=== PATIENT | male | born 1975 | race Caucasian/White ===

== ENCOUNTER 2019-04-03 20:21 | Emergency (ER) | payer OTHER, SELFPAY ==
[2019-04-03 20:23] VITALS: BP 146/77; PULSE 76; RESP 16; TEMP 36.7; O2SAT 98; BMI 25.0
--- NOTE | 2019-04-03 20:41 | ED.VIS.GEN ---
History of Present Illness Chief Complaint: Lower Extremity Injury Detail of Chief Complaint: Ankle injury Onset: Today Context: Sudden Onset Timing: Continuous Quality: Pain over lateral malleolus Location: Left Current Severity: Mild Maximum Severity: Moderate Worsened by: Movement and weightbearing Relieved by: Rest Associated Symptoms: None Narrative: Patient is a 43-year-old male whose foot went into a hole had a plantar inversion mechanism injury. He localizes pain to the lateral malleolus. Denies paresthesia, anesthesia motors. He denies any other injury. He reports increased pain with weightbearing. He also reports pain with movement. Prior similar symptoms: No Recent Illness/Hospitalization: No - Past Medical History (1) No significant past medical history Status: Acute Past Medical History - Allergies and Home Meds Allergies/Adverse Reactions: Allergies No Known Allergies Allergy (Verified 04/03/19 20:22) Primary Care Physician: Tamiko Gonzalez,Out of [Primary Care Provider] - Prior records reviewed: No Past Medical History: None Lives: Spouse/ Significant Other Smoking Status: Current every day smoker Alcohol: Occasional Review of Systems Musculoskeletal: Reports: Swelling, Extremity Pain. Denies: Myalgias, Arthralgias, Neck pain, Back pain Skin: Denies: Rash, Abrasions, Wounds Neurological: Denies: Weakness, Parasthesia, Numbness Hematologic: Denies: Easy bruising, Easy bleeding Physical Exam Vital Signs/Narrative: Vital Signs Temp Pulse Resp BP Pulse Ox 04/03/19 20:23 98.0 F 76 16 146/77 H 98 Inital Vital Signs reviewed: Yes General: Well nourished, Well developed, No Acute Distress Head: Normocephalic, Atraumatic Eyes: Perrl, EOMI. Negative for: Pale conjunctiva, Scleral icterus, - ENT: Moist mucous membranes, No rhinorrhea Neck: Supple, Nontender Cardiovascular: Regular rate, Regular rhythm Respiratory: No distress Extremities: No edema, Tenderness - Tenderness to palpation over the distal tip of the lateral malleolus. There is no pain posteriorly. There is no pain ablation of the medial malleolus. Is no laxity with drawer testing. Is no pain to palpation at the base of the fifth metatarsal. DP and PT pulse are palpable. There is tenderness palpation over the anterior talofibular ligament.. Negative for: Nontender Skin: Normal color, No rash Neurological: Alert, Oriented x3, Cranial nerves II-XII grossly intact, Normal Strength, Normal Sensation Psychological: Normal affect, Normal Mood Diagnostic/Tx/Re-eval - Medical Decision Making Per the auto ankle rules imaging is not indicated. Patient was informed he may have a small avulsion fracture versus sprain. The treatment is the same. ED Disposition - Plan for ED Patient: Disposition: Home or Assisted Living Diagnosis: Sprain of anterior talofibular ligament of left ankle Instructions: ED Sprain Ankle No X Ray Referrals: [facility] Doctor,Out of [Primary Care Provider] - 10-14 Days if not better Additional Instructions: Remove Aircast to draw the alphabet with your foot 4-6 times a day for the next 5 days. Tablets or 2 Aleve tablets every 3 to 5 days for pain. Apply ice 20 to 30 minutes a time 6-8 times a day for the next 2 to 3 days. You may remove the splint at bedtime.
--- NOTE | 2019-04-03 20:52 | ED.VISSUMM ---
- ER Visit Summary Date of Service: 04/03/19 Chief Complaint: [] History of Present Illness: The patient is a 43 M [] Physical Examination: [] Test Results: [] Emergency Department Course and Treatment: [] Treatment Plan: [] Disposition: [] Impression: [] This note was generated with [employer] dictation software. It may contain incorrect words, spelling, and punctuation that were not noted in review of the chart prior to signing ED Disposition - Plan for ED Patient: Disposition: Home or Assisted Living Diagnosis: Sprain of anterior talofibular ligament of left ankle Instructions: ED Sprain Ankle No X Ray Referrals: [facility] Doctor,Out of [NON-STAFF] - 10-14 Days if not better Additional Instructions: Remove Aircast to draw the alphabet with your foot 4-6 times a day for the next 5 days. Tablets or 2 Aleve tablets every 12 hours for 3 to 5 days, or 4 ibuprofen tablets every 8 hours for 3 to 5 days for pain. Apply ice 20 to 30 minutes a time 6-8 times a day for the next 2 to 3 days. You may remove the splint at bedtime.
[2019-04-03 21:04] VITALS: BP 141/72; PULSE 89; RESP 22; O2SAT 98
--- NOTE | 2019-04-03 21:05 | ED.RN ---
THIS NURSE REVIEWED D/C INSTRUCTIONS WITH PT. PT VERBALIZED UNDERSTANDING OF INSTRUCTIONS. PT DENIES FURTHER NEEDS OR QUESTIONS AT THIS TIME. PT ASSISTED TO VEHICLE VIA W/C
== END 2019-04-03 21:06 | disposition home or self-care (01) ==
PROVIDERS: Emergency Provider Emergency Medicine
DX: S93.492A Sprain of other ligament of left ankle, initial encounter (principal); X50.1XXA Overexertion from prolonged static or awkward postures, initial encounter; Y93.9 Activity, unspecified; Y92.89 Other specified places as the place of occurrence of the external cause; Y99.9 Unspecified external cause status; F17.200 Nicotine dependence, unspecified, uncomplicated
CPT/HCPCS: 99283

== ENCOUNTER 2025-04-12 08:36 | Emergency (ER) | payer OTHER, SELFPAY ==
[2025-04-12 08:37] VITALS: BP 118/77; PULSE 72; RESP 24; TEMP 36.4; O2SAT 100; O2SAT 98; BMI 27.8
--- NOTE | 2025-04-12 08:44 | EDS_ITS ---
HPI History of Present Illness Chief Complaint: Chest Pain Narrative Narrative: 49-year-old male past medical history of coronary artery disease, anxiety, presents with chest pain and pressure that he has had since 1 AM. This was approximately 7 hours and 45 minutes ago. He states that he had pressure-like sensation in his chest. It has improved. No recent fevers or chills, no cough or shortness of breath, no nausea or vomiting, no diaphoresis. He states that a few months ago, he had an [facility] but does not have any stenting. He was at [facility] and then was transferred where he was told that he had a heart attack. No recent leg swelling. At around 8 AM, he became very short of breath. He started breathing fast, and experienced numbness of his face as well as his bilateral hands. [facility] Medical History Anxiety Past heart attack Home Medications ?Medication ?Instructions ?Recorded ?Last Taken ?Type escitalopram oxalate 5 mg tablet 5 mg PO BID 04/12/25 04/12/25 History glimepiride 2 mg tablet 2 mg PO BID 04/12/25 5 History losartan 100 1 tab PO DAILY 04/12/2507/29 History mg-hydrochlorothiazide 25 mg tablet metoprolol succinate 25 mg 12.5 mg PO DAILY 04/12/25 0 04/12/25 History tablet,extended release 24 hr rosuvastatin 40 mg tablet 40 mg PO DAILY 04/12/2507/29 History Allergy/AdvReac Type Severity Reaction Status Date / Time No Known Allergies Allergy Verified 04/12/25 08:41 Surgical History History of placement of ear tubes Social History Smoking Status: Current every day smoker tobacco type: cigarettes ROS ROS ED ROS Narrative Review of systems positive for chest pressure and pain, improving. No fevers or chills, no cough. No nausea or vomiting, no diaphoresis. Approximately 45 m inutes ago he became very short of breath and started breathing fast and experienced paresthesias of his bilateral hands and face. No pedal edema. EXAM Physical Exam Narrative Exam Narrative: Afebrile. Vital signs noted. Nontoxic-appearing. Cardiovascular examination reveals a regular rate and rhythm. Lungs are clear to auscultation bilaterally, positive tachypnea. No wheezing or stridor. Abdomen is soft and nontender without guarding or rebound. Positive bowel sounds. Neurological examination nonfocal, nonlateralizing. No pedal edema. Mild anxiety noted on examination. Const Vital Signs: 04/12/25 08:37 04/12/25 08:45 04/12/25 09:37 Temperature 97.6 F L Temperature Source Oral Pulse Rate 72 63 Respiratory Rate 24 H 16 Blood Pressure 118/77 112/73 Blood Pressure Mean 90 86 Pulse Ox 100 97 Oxygen Delivery Method Room Air Room Air Room Air 04/12/25 11:00 04/12/25 12:25 Temperature 97.9 F Temperature Source Pulse Rate 68 84 Respiratory Rate 16 16 Blood Pressure 107/92 H 122/67 H Blood Pressure Mean 97 85 Pulse Ox 98 100 Oxygen Delivery Method Room Air MDM MDM MDM Narrative Medical decision making narrative: Differential diagnosis includes but not limited to coronary artery disease versus ACS versus panic attack. I have low clinical suspicion for pneumonia or pneumothorax based on the history and physical. Pulse ox is 100% on room air and he is not tachycardic, and he does not have risk factors for pulmonary embolism. I do not feel DVT study is indicated. Additionally, he is PERC negative. Patient will be given aspirin and chest pain workup was pursued. EKG obtained and interpreted by myself independently as normal sinus rhythm at 70 bpm without ectopy or acute ST changes. No STEMI. I reviewed his laboratory work and he has slightly elevated white count of 11.5 which I think is nonspecific, hemoglobin normal at 14.3, hematocrit 39.9, platelet count normal at 342. BMP is consistent with hyperventilation with a CO2 of 16.3 but normal sodium and normal potassium. Glucose elevated to 46 with slightly elevated anion gap which I think is nonspecific. I have low suspicion for diabetic ketoacidosis. BUN 10 and creatinine 0.91. This is a random glucose. High- sensitivity troponin is 7 with 2-hour at 7 as well. However, given his elevated glucose and an elevated anion gap, I did order an acetone, IV fluids, and a venous blood gas. Patient refused IV fluids, and did not want a wait for the acetone. I did review the VBG and he has a pH of 7.53 and is not acidotic. Hence, I do feel that he can be discharged to follow-up. Patient was somewhat adamant on leaving and being discharged with a note for work. He did not want to wait for his acetone level. I did review it and it was 0.2. Hence, I do feel that although he refused IV fluids that he does not have to sign out AGAINST MEDICAL ADVICE. He will follow-up with his primary care provider regarding his hyperglycemia. Return instructions were reviewed. Disposition is discharged home in stable condition. History & Record Review Discussion w/independent historian: Patient Lab Data Attestation: I reviewed the patient's lab results. Labs: Laboratory Results - last 24 hr 04/12/25 04/12/25 08:38 10:28 WBC 11.5 H RBC 4.55 L Hgb 14.3 Hct 39.9 L MCV 87.7 MCH 31.4 MCHC 35.8 RDW Std Deviation 42.3 RDW Coeff of Joce 13.2 Plt Count 342 MPV 11.5 Immature Gran % (Auto) 0.400 Neut % (Auto) 70.2 H Lymph % (Auto) 24.5 Clinch % (Auto) 4.4 Eos % (Auto) 0.2 Baso % (Auto) 0.3 Absolute Neuts (auto) 8.0 H Absolute Lymphs (auto) 2.81 Nucleated RBC % 0 Sodium 138 Potassium 3.5 Chloride 100 Carbon Dioxide 16.3 L Anion Gap 22 H BUN 10 Creatinine 0.91 Estim Creat Clear Calc 112.25 Est GFR (MDRD) Non-Af 104 BUN/Creatinine Ratio 10.6 Glucose 246 H Calcium 10.7 Troponin T High Sens 7 Troponin T Hi Sens 2 Hr 7 b-Hydroxybutyric mmol/L 0.2 ABG Data ABG results: ABG 04/12/25 11:46 Specimen Type SUSANA Sample Site Not entered O2 % 21.0 VBG pH 7.53 H VBG pO2 33 VBG HCO3 25 VBG Total CO2 25 VBG O2 Sat (Calc) 73 H VBG Base Excess 2 POC Mix VBG pCO2 Pt Tmp 29.1 L O2 Delivery Device Not entered Radiography Chest X-Ray - ED: 1 View, Read by ED Physician and Read by Radiologist Diagnostic Testing: Clinical Impression(s) from Imaging Studies Chest X-Ray 04/12/25 08:44 IMPRESSION: No evidence of acute cardiopulmonary pathology. Reading Location: [place] [id number] Discharge Plan Triage Chief Complaint: Chest Pain ED Provider: Andrew Moreno Dx/Rx/DC Orders Clinical Impression: Chest pressure, SOB (shortness of breath), Anxiety, Hyperglycemia Instructions: ED Chest Pain, Uncertain Cause, ED Diabetic Hyperglycemia, ED Dyspnea, ED Panic Attack Prescriptions: No Action glimepiride 2 mg tablet 2 mg PO BID metoprolol succinate 25 mg tablet extended release 24 hr 12.5 mg PO DAILY escitalopram oxalate 5 mg tablet 5 mg PO BID losartan-hydrochlorothiazide 100-25 mg tablet 1 tab PO DAILY rosuvastatin 40 mg tablet 40 mg PO DAILY Stand Alone Forms: Work / School Excuse Primary Care Provider: Mercy Brooks NP Referrals: Care Physician,No Primary [Non-Staff] - Activity Restrictions/Additional Instructions: Follow-up with your primary care provider in 3 to 5 days. Return to the emergency department with increased chest pressure or pain, increased shortness of breath, new or worsening symptoms. Print Language: Upper Sorbian Disposition Disposition: Home, Self Care Discharge Date/Time: 04/12/25 12:25
--- NOTE | 2025-04-12 08:44 | EKG12_ITS ---
Test Reason : CP Blood Pressure : */* mmHG Vent. Rate : 70 BPM Atrial Rate : 70 BPM P-R Int : 158 ms QRS Dur : 90 ms QT Int : 402 ms P-R-T Axes : 24 -9 3 degrees QTcB Int : 434 ms Normal sinus rhythm Normal ECG Confirmed by Stuart Hodgson ([id number]), scientific publications editor JENNIFER GORDILLO ([id number]) on 04/13/2025 11:11:31 AM Referred By: MIGUEL Confirmed By: Stuart Hodgson
--- NOTE | 2025-04-12 08:44 | RAD_ITS ---
PROCEDURE: CHEST 1 VIEW (PORTABLE) 04/12/2025 REASON FOR EXAM: CHEST PAIN TECHNIQUE: Frontal view of the chest. COMPARISON: None FINDINGS: The lungs are clear. The heart borders mediastinum and pulmonary vascular pattern are normal. The upper abdominal bowel gas pattern is normal. There are no bony abnormalities. RAD/Chest 1 View (Portable) IMPRESSION: No evidence of acute cardiopulmonary pathology. Reading Location: [place] [id number]
[2025-04-12] MEDS: Aspirin 81 MG TAB.CHEW 324 MG PO (08:58)
[2025-04-12 09:00] LABS: Absolute Lymphocyte Count 2.81 X10^3/uL (0.83-4.51); Basophil# 0.04 X10^3/uL; Basophil% 0.3 % (0-1); Eosinophil# 0.02 X10^3/uL; Eosinophils% 0.2 % (0-5); Hematocrit 39.9 % (40-54); Hemoglobin 14.3 g/dL (13.0-16.5); Lymphocyte # 2.81 X10^3/ul (0.83-4.51); Lymphocyte % 24.5 % (19-41); Mean Corp Hgb Conc 35.8 g/dL (32-36); Mean Corpuscular Hgb 31.4 pg (27.0-32.0); Mean Corpuscular Volume 87.7 fL (80-94); Mean Platelet Vol. 11.5 fl (6.2-12.0); Monocyte% 4.4 % (0-10); NRBC Flagged by Analyzer 0 % (0-5); Neutrophil # 8.04 X10^3/uL (2.7-7.7); Neutrophil % 70.2 % (47-70); Platelet Count 342 K/mm3 (150-450); RBC Distribution Width CV 13.2 % (11.6-14.6); RBC Distribution Width SD 42.3 fl (35.1-43.9); Red Blood Count 4.55 M/mm3 (4.6-6.2); White Blood Count 11.5 K/mm3 (4.4-11.0)
[2025-04-12 09:28] LABS: Anion Gap 22 (5-15); BUN 10 mg/dL (4-19); BUN/Creat Ratio 10.6 RATIO (10-20); Calcium,Total 10.7 mg/dL (7.6-11.0); Carbon Dioxide 16.3 mmol/L (21.0-32.0); Chloride 100 mmol/L (98-108); Creatinine, Serum 0.91 mg/dL (0.70-1.20); EST Glomerular Filtration Rate 104 (>60); Estimated Creatinine Clearance 112.25 ml/min (50-250); Glucose 246 mg/dL (70-99); Potassium 3.5 mmol/L (3.3-5.1); Sodium Level 138 mmol/L (133-145); Troponin T High Sensitivity 7 ng/L (<=22)
[2025-04-12 09:37] VITALS: BP 112/73; PULSE 63; RESP 16; O2SAT 97
[2025-04-12] MEDS: LORazepam 0.5 MG Tablet PO (10:25)
[2025-04-12 11:00] VITALS: BP 107/92; PULSE 68; RESP 16; O2SAT 98
[2025-04-12 11:22] LABS: Troponin T High Sens 2 HR 7 ng/L (<=22)
--- NOTE | 2025-04-12 11:44 | ED.RN ---
pt. stated at this time he does not think he wants the IV fluids. States he will go home and drink water. notified
[2025-04-12 11:50] LABS: Blood Gas Specimen Type VEN; O2 Delivery Device Not entered; SITE Not entered; VBG BASE EXCESS 2 mmol/L (-1.0-3.5); VBG Bicarbonate 25 mmol/L (22-26); VBG PO2 33 mmHg (25-40); VBG SO2 73 % (50-70); VBG TCO2 25 mmol/L (23-33); VBG pCO2 29.1 mmHg (41-51); VBG pH 7.53 (7.32-7.42)
--- NOTE | 2025-04-12 12:10 | ED.RN ---
pt. and s/o voiced frustrations that i was told I was being discharged so my drove all the way here witha petty and now theres a delay in my discharge. Pt. updated that had added on additional blood work to ensure pt. was not in DKA. pt. given options to wait for blood work and get discharge paperwork along with work note or sign out AMA. Pt. given time to make decision. Call light within reach.
[2025-04-12 12:25] VITALS: BP 122/67; PULSE 84; RESP 16; TEMP 36.6; O2SAT 100
[2025-04-12 12:37] LABS: BETA-HYDROXYBUTYRATE 0.2 mmol/L (0.0-0.3)
== END 2025-04-12 12:25 | disposition home or self-care (01) ==
PROVIDERS: Emergency Provider Emergency Medicine; PCP Nurse Practitioner Adult Health; Visit Provider Emergency Medicine
DX: R07.89 Other chest pain (principal); F41.9 Anxiety disorder, unspecified; R73.9 Hyperglycemia, unspecified; I25.10 Atherosclerotic heart disease of native coronary artery without angina pectoris; R06.02 Shortness of breath; F17.210 Nicotine dependence, cigarettes, uncomplicated; Z79.899 Other long term (current) drug therapy; Z79.85 Long-term (current) use of injectable non-insulin antidiabetic drugs
CPT/HCPCS: 71045; 80048; 82010; 82803; 84484; 85025; 93005; 99285; A4216